=== PATIENT | male | born 2000 | race Caucasian/White ===

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

== ENCOUNTER 2024-03-05 22:33 | Emergency (ER) | payer OTHER ==
[~2024-03-05] VITALS: Ht 180.3 cm; Wt 56.7 kg
[2024-03-05 22:57] VITALS: BP 129/89; PULSE 68; RESP 16; TEMP 98.2; O2SAT 100
[2024-03-06 00:48] VITALS: BP 129/89; PULSE 68; RESP 16; TEMP 98.2; O2SAT 100
== END 2024-03-06 00:20 | disposition home or self-care (01) ==
LOC: MED 22:33
DX: S23.9XXA Sprain of unspecified parts of thorax, initial encounter (principal); J45.909 Unspecified asthma, uncomplicated; Z79.899 Other long term (current) drug therapy; X58.XXXA Exposure to other specified factors, initial encounter; Y92.89 Other specified places as the place of occurrence of the external cause; Y93.89 Activity, other specified; Y99.8 Other external cause status
CPT/HCPCS: 93005; 99281; 99283